=== PATIENT | female | born 1995 | race Caucasian/White ===

== ENCOUNTER 2024-04-02 07:23 | Inpatient (IN) | payer SELFPAY ==
[2024-04-02] VITALS (18 sets, daily range): BP systolic 101–139; BP diastolic 56–95; PULSE 49–84; RESP 15–16; TEMP 36.6–37.3; O2SAT 97–100; BMI 25.8
[2024-04-02] MEDS: Lactated Ringers 1,000 ML 50 ML IV (07:55)
[2024-04-02 08:22] LABS: Absolute Lymphocyte Count 1.93 X10^3/uL (0.83-4.51); Absolute Neutrophil Count 5.7 X10^3/uL (2.0-7.7); Basophil# 0.04 X10^3/uL; Basophil% 0.5 % (0-1); Eosinophil# 0.08 X10^3/uL; Eosinophils% 0.9 % (0-5); Hematocrit 35.4 % (37-47); Hemoglobin 11.8 g/dL (12.0-15.0); Lymphocyte # 1.93 X10^3/ul (0.83-4.51); Lymphocyte % 22.9 % (19-41); Mean Corp Hgb Conc 33.3 g/dL (32-36); Mean Corpuscular Hgb 29.5 pg (27.0-32.0); Mean Corpuscular Volume 88.5 fL (81-99); Mean Platelet Vol. 11.8 fl (6.2-12.0); Monocyte# 0.64 X10^3/uL; Monocyte% 7.6 % (0-10); NRBC Flagged by Analyzer 0 % (0-5); Neutrophil # 5.67 X10^3/uL (2.7-7.7); Neutrophil % 67.3 % (47-70); Platelet Count 156 K/mm3 (150-450); RBC Distribution Width CV 14.8 % (11.6-14.6); RBC Distribution Width SD 47.8 fl (35.1-43.9); White Blood Count 8.4 K/mm3 (4.4-11.0)
[2024-04-02] MEDS: Oxytocin 15 Units/NS 250ml 15 UNITS/250 ML IV.SOLN 2 UNITS IV (08:32)
--- NOTE | 2024-04-02 08:40 | PCM.HP.OB ---
HPI - General General Date of Admission: 04/02/24 Date of Service: 04/02/24 Chief Complaint: IOL twins HPI Narrative TAWANNA DELATORRE, is a 29 F who presents for induction of labot for Di/DI twins. Vtx/vtx on US. Maternal Data Information Final JOSE: 04/16/24 Gestational age: 38 PFSH PFS Medical History History of pre-term labor Home Medications ?Medication ?Instructions ?Recorded ?Last Taken ?Type docosahexaenoic acid 200 mg 200 mg PO DAILY 04/02/24 04/01/24 22:00 History capsule ( DHA) ferrous sulfate 325 mg (65 mg 650 mg PO DAILY anemia 04/02/24 04/01/24 22:00 History iron) tablet (iron) Allergy/AdvReac Type Severity Reaction Status Date / Time No Known Allergies Allergy Verified 04/02/24 07:20 Social History Smoking Status: Never smoker History 3 Elective abortions Hx Para 2 Spontaneous abortions Hx # Term Pregnancies Ectopic pregnancies Hx # Pregnancies Multiple births # of living children NST FHR Rate Baby A Baseline: 140 Variability:: Moderate Accelerations:: 15 x 15 Decelerations:: None NST Reactive:: Yes FHR Category:: Category I Uterine Activity:: q 7 FHR Rate Baby B Baseline: 130 Variability:: Moderate Accelerations:: 15 x 15 Decelerations:: None NST Reactive:: Yes FHR Category:: Category I Uterine Activity:: q 7 ROS Constitutional Constitutional: Denies fatigue, fever(s) or malaise Eyes Eyes: Denies change in vision ENT HEENT: Denies dizziness or headache(s) Cardiovascular Cardiovascular: Denies chest pain, dyspnea or lightheadedness Respiratory/Chest Respiratory/Chest: Denies cough or dyspnea Gastrointestinal Gastrointestinal: Denies change in bowel habits Genitourinary Genitourinary: Denies burning urination or genital lesions Integumentary Integumentary: Denies rash Neurologic Neurologic: Denies confusion, dizziness, headache(s), numbness or weakness Vital Signs Vital Signs Vital Signs: 04/02/24 07:40 04/02/24 07:40 04/02/24 08:29 Temperature Temperature Source Pulse Rate 80 Respiratory Rate Blood Pressure 113/69 BP Systolic 113 BP Diastolic 69 Pulse Ox 100 04/02/24 08:29 04/02/24 08:29 04/02/24 08:29 Temperature Temperature Source Temporal Pulse Rate 72 Respiratory Rate Blood Pressure BP Systolic BP Diastolic Pulse Ox 99 04/02/24 08:29 04/02/24 08:29 04/02/24 08:29 Temperature 98.5 F Temperature Source Temporal Pulse Rate Respiratory Rate 16 Blood Pressure BP Systolic BP Diastolic Pulse Ox 04/02/24 08:29 04/02/24 08:29 04/02/24 08:35 Temperature 98.5 F Temperature Source Pulse Rate 71 Respiratory Rate Blood Pressure BP Systolic BP Diastolic Pulse Ox 99 04/02/24 08:35 Temperature Temperature Source Pulse Rate Respiratory Rate Blood Pressure BP Systolic BP Diastolic Pulse Ox 99 Weight Weight: 72.575 kg Body Mass Index (BMI) 25.8 Physical Exam Const alert and no apparent distress General Appearance: cooperative HEENT normocephalic Resp normal respiratory effort Cardio regular rate GI soft to palpation GI Narrative: gravid, nontender, appropriate for gestational age Extremity no calf tenderness General Extremity: edema Skin no wounds Rashes: No rashes noted Psych activity/motor behavior normal Labs Labs Labs: Antibody Screen Pending Hct 35.4 % (37-47) L Hgb 11.8 g/dL (12.0-15.0) L Syphilis Total Ab Pending Assessment & Plan (1) Twin gestation in third trimester: QUALIFIERS: Multiple gestation type: dichorionic and diamniotic Qualified Code(s): O30.043 - Twin , dichorionic/diamniotic, third trimester (2) Elective induction of labor planned: (3) 38 weeks gestation of : PLAN: Plan IOL of labor No epidural planned
[2024-04-02 09:01] LABS: Syphilis Antibodies Non-reactive
--- NOTE | 2024-04-02 14:19 | PLAC_PTH ---
PATIENT: TAWANNA DELATORRE LOC: [facility] U#:[id number] AGE/SX: 29/F ROOM: [facility] RE04/02/[address]: Dr. Milady Lara MD : 1995 BED: 1 DIS: 04/03/2024 SPEC #: [id number] RECD: 04/02/24 15:44 STATUS: JULIA FELIZ #: [id number] CARLOS: 04/02/24 14:[address]: Milady Lara DEPT: SURGICAL PATHOLOGY RECD BY: Alis Carvajal ENTERED: 04/03/24 09:11 SP TYPE: PLACENTA OTHR DR: TIM Pan Tissues: Placenta, NOS Procedures: Surgery Specimen Level V HEADER OPERATION: Vaginal delivery PRE-OP DIAGNOSIS: Twins TISSUE SUBMITTED: Placenta MICROSCOPIC DIAGNOSIS Twin placenta dichorionic diamniotic (915 gm): Placenta A- Umbilical cord - Trivascular with no evidence of inflammation. Placental membranes - No pathologic change Placental disc - Eric-Amilcar change and intravillous congestion Placenta B- Umbilical cord - Trivascular with no evidence of inflammation Placental membranes - No pathologic change Placental disc - Eric-Amilcar change and intravillous congestion. AM: 04/07/2024 MICROSCOPIC DESCRIPTION Slides are reviewed. GROSS DESCRIPTION SPECIMEN: TWIN PLACENTA / CLINICAL INFORMATION: Twin placenta consisting of single placental disc, two umbilical cords and two membrane sacs. The umbilical cords are identified by 1 clip assigned as placenta A and second umbilical cord identified by two clips identified as placenta B. The dividing membrane of septum is inserted in the center of the placental disc. A. Weight: A - 2.91kg; B - 2.615kg B. Gestational Age: 38weeks C. Sex: A- Female, B- Female PLACENTAL WEIGHT (POST FIXATION): 915gm PLACENTAL DIMENSIONS: 21.0 x 20.0 x 4.0cm PLACENTAL SHAPE: Usual ovoid PLACENTAL WEIGHT FOR GESTATIONAL AGE: Within 10-99th percentile PLACENTA A: MEMBRANES - Present A. Insertion: Marginal B. Site of rupture from edge: at the margin of placental disc C. Color of membrane: Crandall-gardner D. Abnormalities: None UMBILICAL CORD - Present A. Color: Crandall-gardner B. Insertion: Central C. Length: 44.0cm D. Diameter: 1.5cm E. Number of vessels: Three F. Abnormalities: None PLACENTA B: MEMBRANES - Present A. Insertion: Marginal B. Site of rupture from edge: at the margin of placental disc C. Color of membrane: Crandall-gardner D. Abnormalities: None UMBILICAL CORD - Present A. Color: Crandall-gardner B. Insertion: Paracentral C. Length: 43.0cm D. Diameter: 1.2cm E. Number of vessels: Three F. Abnormalities: None PLACENTAL DISC - Present A. Color of surface: Crandall-gardner B. surface abnormalities: None C. Maternal cotyledons: Intact with minimal tears D. Attached retro placental clot: No clot E. Cut surface: Dark red and spongy F. Lesions: None G. Separate clot: Absent SECTIONS SUBMITTED: 11 cassettes (Dr. Day) 1 - Dividing membranous septum, 2-6 - placenta A (2 - membrane roll, 3 - umbilical cord, end is inked black, 4-6 - body of the placenta including maternal and surfaces), 7-11 - placenta B (7 - membrane roll, 8 - umbilical cord, end is inked black, 9-11 - body of the placenta including maternal and surfaces). JUNE/ 04/04/2024 TC:5 CPT: 37132 x2
[2024-04-02] MEDS: Oxytocin 15 Units/NS 250ml 15 UNITS/250 ML IV.SOLN 83 UNITS IV (15:10)
[2024-04-02] MEDS: Methylergonovine 0.2 MG/ML Ampul IM (15:53)
--- NOTE | 2024-04-02 16:53 | EX.PCM.OBRPT ---
Assessment & Plan (1) Twin delivered vaginally: (2) 38 weeks gestation of : Maternal Data Information Final JOSE: 04/16/24 Gestational age: 38 Vaginal Delivery Maternal Presentation Maternal Presentation: Medically Indicated Induction Maternal Presentation: Di/Di twins at 38 weeks Type of Induction: Pitocin and Amniotomy Operative Information Date of Procedure: 04/02/24 Pre-Operative Diagnosis: Twin Post-Operative Diagnosis: same Surgery / Procedure Performed: Spontaneous Vaginal Delivery (A) Type of Anesthesia: None Estimated Blood Loss: 300 Time of Delivery: 14:19 Findings Presentation: Vertex and ABHILASH Amniotic Membrane Rupture Type: Artificial Amniotic Fluid Description: Clear Placental Delivery Description: Spontaneous Placenta Disposition: [facility] Cord Vessel Description: 3 Vessels Cord Entanglement: None A Gender: Female (1 minute): 9 (5 minute): 9 Delayed Cord Clamping: Yes Post Vaginal Delivery Medications Given After Delivery: IV Pitocin Episiotomy Description: None Laceration: 1st degree (along edge of introitus. Varicosities present) Complication Complications: None Baby B Information Amniotic Membrane Rupture Type: Artificial Presentation: Vertex and ROP Operative Information Mode of Delivery: Vaginal Cord Vessel Description: 3 Vessels Cord Entanglement: None Infant B gender: Female (1 minute): 9 (5 minute): 9 Delayed Cord Clamping: Yes
[2024-04-02] MEDS: Acetaminophen 500 MG Tablet 1000 MG PO (17:13)
--- NOTE | 2024-04-02 17:37 | NURSING ---
1530 vital signs took but did not save-viewed by this nurse
[2024-04-03 00:23] VITALS: BP 106/63; PULSE 77; RESP 16; O2SAT 96
[2024-04-03 01:58] LABS: Pathology Specimen OB SEE PATHOLOGY REPORT
[2024-04-03 04:25] VITALS: BP 100/63; PULSE 55; RESP 16; O2SAT 98
[2024-04-03] MEDS: Acetaminophen 500 MG Tablet 1000 MG PO (06:56)
--- NOTE | 2024-04-03 07:14 | PCM.PN.OB ---
Subjective Subjective Doing well. Minimal pain. Minimal bleeding. Breast feeding both babies. Ambulating and voiding without difficulty. Desires discharge today Objective Data Objective Data Vital Signs: Vital Signs Temp Pulse Resp BP Pulse Ox O2 Del Method 98.6 F 55 L 16 100/63 98 Room Air 04/02/24 20:05 04/03/24 04:25 04/03/24 04:25 04/03/24 04:25 04/03/24 04:25 04/03/24 04:25 Oxygen Delivery Method Room Air Weight: 72.575 kg Body Mass Index (BMI) 25.8 Intake & Output: Intake and Output for Last 24 Hours 04/01/24 04/02/24 04/03/24 23:59 23:59 23:59 Intake Total 791.80 / 791.80 Output Total 700 / 700 Balance 91.80 / 91.80 Lab / Micro Data 04/02/24 07:55 Labs: Laboratory Results - last 24 hr 04/02/24 07:55: WBC 8.4, RBC 4.00 L, Hgb 11.8 L, Hct 35.4 L, MCV 88.5, MCH 29.5, MCHC 33.3, RDW Std Deviation 47.8 H, RDW Coeff of Francis 14.8 H, Plt Count 156, MPV 11.8, Immature Gran % (Auto) 0.800, Neut % (Auto) 67.3, Lymph % (Auto) 22.9, [place] % (Auto) 7.6, Eos % (Auto) 0.9, Baso % (Auto) 0.5, Absolute Neuts (auto) 5.7, Absolute Lymphs (auto) 1.93, Nucleated RBC % 0, Syphilis Total Ab Non-reactive, Blood Type A POSITIVE, Antibody Screen NEGATIVE ROS Constitutional Constitutional: Denies fatigue, fever(s) or malaise Eyes Eyes: Denies change in vision ENT HEENT: Denies dizziness or headache(s) Cardiovascular Cardiovascular: Denies chest pain, dyspnea or lightheadedness Respiratory/Chest Respiratory/Chest: Denies cough or dyspnea Gastrointestinal Gastrointestinal: Denies change in bowel habits Genitourinary Genitourinary: Denies burning urination or genital lesions Integumentary Integumentary: Denies rash Neurologic Neurologic: Denies confusion, dizziness, headache(s), numbness or weakness Physical Exam Const alert and no apparent distress Narrative: Fundus firm, below umbilicus. Assessment & Plan (1) Twin delivered vaginally: (2) Twin gestation in third trimester: QUALIFIERS: Multiple gestation type: dichorionic and diamniotic Qualified Code(s): O30.043 - Twin , dichorionic/diamniotic, third trimester PLAN: Plan Discharge this evening
--- NOTE | 2024-04-03 07:22 | DS.PCM_ITS ---
Providers Date of Admission: 04/02/24 Date of Discharge: 04/03/24 Primary Care Physician: TIM Pan Reason For Visit: VAGINAL Diagnosis Discharge Diagnosis (1) Twin delivered vaginally: Status: Acute Code(s): O30.009 - Twin , unspecified number of placenta and unspecified number of amniotic sacs, unspecified trimester (2) Twin gestation in third trimester: Status: Acute Code(s): O30.003 - Twin , unspecified number of placenta and unspecified number of amniotic sacs, third trimester Qualifiers: Multiple gestation type: dichorionic and diamniotic Qualified Code(s): O30.043 - Twin , dichorionic/diamniotic, third trimester Plan Discharge this evening Medications at Discharge Home Medications docosahexaenoic acid 200 mg capsule ( DHA) 200 mg PO DAILY 04/02/24 ferrous sulfate 325 mg (65 mg iron) tablet (iron) 650 mg PO DAILY anemia 04/02/24 Hospital Course Operations None Procedures None Summary of Care Provided Minutes Spent on Discharge: 20 Hospital Course: Admitted for IOL at 38 weeks with di/di twins. VTX/VTX. Delivered vaginally x 2 without complication. No problems . Physical Exam Const alert and no apparent distress Narrative: Fundus firm, below umbilicus. Weight / BMI Weight Weight: 72.575 kg Body Mass Index (BMI) 25.8 ABG / Lab / Microbiology Data 04/02/24 07:55 Laboratory: Laboratory Results - last 24 hr 04/02/24 07:55: WBC 8.4, RBC 4.00 L, Hgb 11.8 L, Hct 35.4 L, MCV 88.5, MCH 29.5, MCHC 33.3, RDW Std Deviation 47.8 H, RDW Coeff of Francis 14.8 H, Plt Count 156, MPV 11.8, Immature Gran % (Auto) 0.800, Neut % (Auto) 67.3, Lymph % (Auto) 22.9, [place] % (Auto) 7.6, Eos % (Auto) 0.9, Baso % (Auto) 0.5, Absolute Neuts (auto) 5.7, Absolute Lymphs (auto) 1.93, Nucleated RBC % 0, Syphilis Total Ab Non- reactive, Blood Type A POSITIVE, Antibody Screen NEGATIVE D/C Instructions May resume sexual activity in: 6 weeks Please Follow Up With: Za Phipps MD When: Follow up with our office in 1-2 and 6 weeks or as needed. [phone] Meaningful Use Info Meaningful Use Meaningful Use Diagnoses (Choose all that apply): None applicable Ischemic Stroke Statin Dosing Therapy Reference: STATIN DOSE THERAPY REFERENCE: * Patients > 75 years receive moderate or high dose statin therapy. * Patients 75 years or YOUNGER should receive HIGH intensity statin dose unless contraindicated. You will be required to document reason for non-treatment if statin daily dose does not meet guidelines. HIGH DOSE STATIN THERAPY DAILY Atorvastatin > than or = to 40 mg Rosuvastatin > than or = to 20 mg Amlodipine + Atorvastatin > than or = to 2.5/40 mg Ezetimibe + Simvastatin 10/80 mg Simvastatin 80mg Discharge Plan Admission Admit Date/Time: 04/02/24 07:23 Primary Reason for Your Visit: IOL twins Attending Provider: Milady Lara Primary Care Provider: Za Puga Discharge Orders/Prescriptions Prescriptions: Continued DHA 200 mg capsule 200 mg PO DAILY ferrous sulfate [iron] 325 mg (65 mg iron) tablet 650 mg PO DAILY Referrals / Follow Up: Za Puga PA [Primary Care Provider] - Disposition Disposition (needs filled in before D/C Order can be placed): Home, Self Care
[2024-04-03 08:30] VITALS: BP 93/64; PULSE 69; RESP 15; TEMP 36.2; O2SAT 96
[2024-04-03 11:54] VITALS: BP 110/79; PULSE 77; RESP 16; TEMP 36.2; O2SAT 97
[2024-04-03 15:12] VITALS: BP 101/74; PULSE 63; RESP 15; TEMP 36.7; O2SAT 97
== END 2024-04-03 17:45 | disposition home or self-care (01) | DRG 807 ==
PROVIDERS: Admitting Provider Obstetrics & Gynecology; Referring Provider Obstetrics & Gynecology; Visit Provider Obstetrics & Gynecology
DX: O30.043 Twin pregnancy, dichorionic/diamniotic, third trimester (principal); Z37.2 Twins, both liveborn; Z3A.38 38 weeks gestation of pregnancy
CPT/HCPCS: 59025; 59050; 76815; 85025; 86780; 86850; 86900; 86901; 88307; 99221; J7120; G0378